=== PATIENT | female | born 1960 | race Hispanic/Latino ===

== ENCOUNTER 2018-08-03 13:23 | Emergency (ER) | payer OTHER ==
[~2018-08-03] VITALS: Ht 152.4 cm; Wt 84.4 kg
--- NOTE | 2018-08-03 16:11 | Diagnostic Imaging Report ---
Radiographs of the left shoulder - 3 views HISTORY: Pain COMPARISON: None available. FINDINGS: Bones: No acute displaced fracture. Osseous alignment is within normal limits. Joints: Scattered degenerative change. No osseous erosion. Soft tissues: The soft tissues appear unremarkable. IMPRESSION: Scattered degenerative change. No osseous erosion. Signed by: Dr. Alex Verde M.D. on 08/03/2018 4:08 PM
[2018-08-03 17:26] VITALS: BP 152/84
== END 2018-08-03 17:31 | disposition home or self-care (01) ==
LOC: ER 13:23
DX: S46.812A Strain of other muscles, fascia and tendons at shoulder and upper arm level, left arm, initial encounter (principal); X50.0XXA Overexertion from strenuous movement or load, initial encounter; Y99.0 Civilian activity done for income or pay; I10 Essential (primary) hypertension; E23.2 Diabetes insipidus; K21.9 Gastro-esophageal reflux disease without esophagitis
CPT/HCPCS: 99283

== ENCOUNTER → 2018-08-29 | Outpatient (CLI) | payer BC ==
--- NOTE | 2018-08-31 11:41 | Diagnostic Imaging Report ---
PROCEDURE:PELVIC ULTRASOUND COMPARISON:None. INDICATIONS:PELVIC PAIN TECHNIQUE: Grayscale transverse and sagittal transabdominal images were obtained of the pelvis. . FINDINGS:Limited exam with transabdominal imaging due to a fundal fibroid that is calcified that measures 5.4 x 4.7 x 5.6 cm. Remainder of the uterus is not visible. Neither ovaries or the endometrial stripe are able to be seen. Additional evaluation with either transvaginal scanning or pelvic MRI would be of benefit. CONCLUSION: Limited transabdominal pelvic ultrasound showing a fundal fibroid. Richard Lauren D.O. Dictated by: Richard Lauren D.O. on 08/31/2018 at 11:50 Electronically approved by: Richard Lauren D.O. on 08/31/2018 at 11:50
--- NOTE | 2018-08-31 11:45 | Diagnostic Imaging Report ---
PROCEDURE:ABDOMINAL ULTRASOUND COMPARISON:None. INDICATIONS:ABD PAIN FINDINGS: Liver: Measures 14.9 cm in the midclavicular line. Increased hepatic parenchymal echogenicity. No focal mass. Main portal vein: Measures 0.8 cm with normal hepatopetal flow. Gallbladder: Absent. Common Bile Duct: Measures 0.3 cm with no echogenic filling defect. Sonographic Alba's sign: Negative Right kidney: Measures 10.4 x 4.3 x 5.1 cm. No solid or cystic mass, echogenic calculi or hydronephrosis. Normal parenchymal echogenicity. Left kidney: Measures 10.2 x 4.6 x 5.1 cm. No solid or cystic mass, echogenic calculi or hydronephrosis. Normal parenchymal echogenicity. Spleen: Measures 7.8 x 3.5 x 3.2 cm. No mass identified. Pancreas: The visualized portions of the pancreas are normal. Inferior vena cava: Normal. Aorta: Normal. Ascites: None. CONCLUSION: Echogenic liver without evidence of a mass. Richard Lauren D.O. Dictated by: Richard Lauren D.O. on 08/31/2018 at 11:54 Electronically approved by: Richard Lauren D.O. on 08/31/2018 at 11:54
== END ==
LOC: US 10:23
PROVIDERS: ATTEND Family Medicine
DX: R10.9 Unspecified abdominal pain (principal); R10.2 Pelvic and perineal pain; D25.9 Leiomyoma of uterus, unspecified
CPT/HCPCS: 76700; 76856

== ENCOUNTER → 2019-09-30 | Outpatient (CLI) | payer BC ==
[~2019-09-30] MED LIST: DIATRIZOATE MEGL/DIATRIZOA SOD 30 ML BTL PO ONE; IOPAMIDOL 370 MG/ML 200 ML INFUS..BTL INJ ONE; SODIUM CHLORIDE 0.9% 50ML 50 ML ONE
[2019-09-30 13:02] LABS: BLOOD UREA NITROGEN 13 mg/dL (7-26); BUN/CREATININE RATIO 18 (6-25); CREATININE, SERUM 0.74 mg/dL (0.57-1.11); EST GLOMERULAR FILTRATION RATE > 60 ML/MIN (60-)
--- NOTE | 2019-09-30 15:41 | Diagnostic Imaging Report ---
EXAM: CT Abdomen and Pelvis WITH intravenous contrast INDICATION: Abdominal pain COMPARISON: None. TECHNIQUE: Abdomen and pelvis were scanned utilizing a multidetector helical scanner from the lung base to the pubic symphysis after administration of IV contrast. Coronal and sagittal reformations were obtained. Routine protocol was performed. Scan was performed during portal venous phase. IV CONTRAST: 100mL of Isovue 370 ORAL CONTRAST: Water RADIATION DOSE: Total DLP: 680.7 mGy*cm Dose modulation, iterative reconstruction, and/or weight based adjustment of the mA/kV was utilized to reduce the radiation dose to as low as reasonably achievable. FINDINGS: LOWER THORAX: No lung base consolidation. Moderate hiatal hernia. HEPATOBILIARY: Diffuse hepatic steatosis. No focal liver lesion. No biliary ductal dilation. Status post cholecystectomy. SPLEEN: No splenomegaly. PANCREAS: No focal masses or ductal dilatation. ADRENALS: No adrenal nodules. KIDNEYS/URETERS: No hydronephrosis, stones, or solid mass lesions. PELVIC ORGANS/BLADDER: Peripherally calcified mass involving the uterus measures up to 5.0 x 5.4 x 5.8 cm, likely a uterine fibroid. PERITONEUM / RETROPERITONEUM: No free air or fluid. LYMPH NODES: No lymphadenopathy. VESSELS: Mild scattered atherosclerotic calcifications of the nonaneurysmal abdominal aorta and major branches. GI TRACT: Diverticulosis without CT evidence of diverticulitis. No abnormal bowel wall thickening. No bowel obstruction. BONES AND SOFT TISSUES: No acute osseous injury. No suspicious lytic or blastic lesions. IMPRESSION: No acute findings in the abdomen or pelvis. Diffuse hepatic steatosis. Diverticulosis without CT evidence of diverticulitis. Calcified uterine fibroid. Signed by: Chary Goyal MD on 09/30/2019 3:37 PM
== END ==
LOC: CT 12:23
PROVIDERS: ATTEND Family Medicine
DX: R10.84 Generalized abdominal pain (principal); M54.15 Radiculopathy, thoracolumbar region
CPT/HCPCS: 36415; 74177; 82565; 84520; Q9967

== ENCOUNTER → 2019-10-04 | Outpatient (CLI) | payer BC ==
--- NOTE | 2019-10-04 12:28 | Diagnostic Imaging Report ---
Examination: MRI SPINE THORACIC WO CONTRAST History: Mid back pain. Comparison studies: None Technique: Sagittal T1 and STIR; axial, sagittal and coronal T2 Intravenous contrast: None. Findings: Alignment: Normal kyphosis. No scoliosis. Thoracic cord: Normal in signal and morphology. The tip of the conus is at T12-L1. Soft tissues: No T2 hyperintense inflammatory changes. Paraspinal muscles: Preserved. No volume loss. Vertebrae: No compression fractures, infection or neoplasm. Degenerative changes: Disc spaces:Normal in height and signal intensity.. Facets: Intact. Spinal canal:Patent. No stenosis. Foramina:Patent. Disc bulge or herniations:No abnormality. A 6 mm T2 hyperintense lesion is demonstrated in the right neural foramen at T10-T11, representing a nerve root sleeve cyst. Similar but smaller lesions are seen in the left neural foramen at T4-5, T5-T6, T6-T7 and T8-T9. IMPRESSION: 1. No acute abnormality. 2. No disc herniation or canal stenosis. 3. Incidental subcentimeter nerve root sleeve cysts, as detailed above. Signed by: Dr. Sofi Rendon M.D. on 10/04/2019 12:25 PM
== END ==
LOC: MRI 10:07
PROVIDERS: ATTEND Family Medicine
DX: M54.15 Radiculopathy, thoracolumbar region (principal)
CPT/HCPCS: 72146

== ENCOUNTER 2020-04-10 01:11 | Emergency (ER) | payer BC ==
[~2020-04-10] VITALS: Ht 152.4 cm; Wt 84.4 kg
--- NOTE | 2020-04-10 01:39 | Emergency Department Note ---
History of Present Illnes History of Present Illness Chief Complaint: COVID PUI History of Present Illness This is a 59 year old female with positive exposure to COVID-19 patients. Patient had testing done at [facility] but has yet to receive results. Patient with increased cough. Historian: Patient Arrival Mode: [place] Onset (how long ago): day(s) Severity: moderate Onset quality: gradual Duration (how long): day(s) (3) Timing of current episode: constant Progression: worsening Context: Reports recent illness Relieving factors: none Exacerbating factors: none Associated symptoms: Reports cough, Reports fever/chills, Reports malaise Treatments prior to arrival: none Past Medical/Family History Physician Review I have reviewed the patient's past medical and family history. Any updates have been documented here. Past Medical History Recent Fever: Yes Clinical Suspicion of Infectio: No New/Unexplained Change in Ment: No Past Medical History: Hypertension, Diabetes, GERD Past Surgical History: Cholecysctectomy Other Surgery: Bladder suspension cyst removal from back Fibroid embolization Social History Smoking Cessation: Never Smoker Alcohol Use: None Any Illegal Drug Use: No Other Last Tetanus: UTD Review of Systems Review of Systems Constitutional: Reports fever EENTM: Reports no symptoms Cardiovascular: Reports no symptoms Respiratory: Reports no symptoms Gastrointestinal: Reports nausea Genitourinary: Reports no symptoms Musculoskeletal: Reports no symptoms Integumentary: Reports no symptoms Neurological: Reports no symptoms Psychological: Reports no symptoms Endocrine: Reports no symptoms Hematological/Lymphatic: Reports no symptoms Physical Exam Related Data Allergies: Coded Allergies: morphine (Verified Allergy, Severe, SOB, 08/03/18) promethazine (Verified Allergy, Severe, SOB, 08/03/18) Triage Vital Signs Vital Signs Date Time Temp Pulse Resp B/P (MAP) Pulse Ox O2 Delivery O2 Flow Rate FiO2 04/10/20 01:19 Room Air Vital signs reviewed: Yes Physical Exam CONSTITUTIONAL Constitutional: Present ill appearing HENT HENT: Present normocephalic, Present atraumatic, Present oropharynx clear/moist, Present nose normal HENT L/R: Present left ext ear normal, Present right ext ear normal EYES Eyes: Reports PERRL, Reports conjunctivae normal NECK Neck: Present ROM normal PULMONARY Pulmonary: Present effort normal, Present breath sounds normal CARDIOVASCULAR Cardiovascular: Present regular rhythm, Present heart sounds normal, Present capillary refill normal, Present normal rate GASTROINTESTINAL Abdominal: Present soft, Present nontender, Present bowel sounds normal GENITOURINARY Genitourinary: Present exam deferred SKIN Skin: Present warm, Present dry MUSCULOSKELETAL Musculoskeletal: Present ROM normal NEUROLOGICAL Neurological: Present alert, Present oriented x 3, Present no gross motor or sensory deficits PSYCHOLOGICAL Psychological: Present mood/affect normal, Present judgement normal Assessment & Plan Medical Decision Making MDM 59 yof with fever and myalgias. (+) contact . COVID-19 highly suspected but testing deferred secondary to stable vital signs and high oxygen saturation on RA. Patient to be given Rx Azithromycin and albuterol. Assessment & Plan Final Impression: (1) COVID-19 Depart Disposition: HOME, SELF-CARE Last Vital Signs Date Time Temp Pulse Resp B/P (MAP) Pulse Ox O2 Delivery O2 Flow Rate FiO2 04/10/20 01:19 Room Air Home Meds Active Scripts Albuterol Sulfate (ALBUTEROL SULFATE) 2.5 Mg/3 Ml Vial.neb, 6 ML PO Q4HR PRN for COUGH, #60 UNIT 2 Refills PRN COUGH, WHEEZING, SHORTNESS OF BREATH Prov:NAREN GERMAN 04/13/20 Albuterol Sulf* (PROAIR HFA INHALER*) 8.5 Gm Inh, 2 INH PO Q4HR PRN for COUGH, #1 UNIT 2 Refills PRN COUGH, WHEEZING, SHORTNESS OF BREATH Prov:NAREN GERMAN 04/13/20 Prednisone (PREDNISONE) 20 Mg Tab, 60 MG PO DAILY, #21 TAB TAKE ALL 3 PILLS AT ONCE Prov:NAREN GERMAN 04/13/20 TAMY MYERS DO Apr 10, 2020 01:39
[2020-04-10] MEDS ORDERED: KETOROLAC TROMETHAMINE 60 MG/2 ML VIAL IM ONE (01:45)
[2020-04-10] MEDS ORDERED: AZITHROMYCIN 250 MG TAB PO ONE (01:45)
[2020-04-10] MEDS ORDERED: AZITHROMYCIN 250 MG TAB ONE (02:20)
== END 2020-04-10 02:50 | disposition home or self-care (01) ==
LOC: ER 01:25
DX: U07.1 COVID-19 (principal); R50.9 Fever, unspecified; R05 Cough; R53.81 Other malaise; I10 Essential (primary) hypertension; E11.9 Type 2 diabetes mellitus without complications; K21.9 Gastro-esophageal reflux disease without esophagitis
CPT/HCPCS: 99283; J1885

== ENCOUNTER 2020-04-13 15:55 | Emergency (ER) | payer BC, OTHER ==
[~2020-04-13] VITALS: Ht 152.4 cm; Wt 84.8 kg
[2020-04-13] MEDS ORDERED: PREDNISONE20 MG PO ×2 (16:40→16:44)
[2020-04-13] MEDS ORDERED: PROAIR HFA INH8.5 GM PO ×2 (16:40→16:44)
[2020-04-13] MEDS ORDERED: ALBUTEROL2.5 MG/3 M PO ×2 (16:40→16:44)
--- NOTE | 2020-04-13 17:40 | Emergency Department Note ---
History of Present Illnes History of Present Illness Chief Complaint: COVID PUI/ cough, fever, reyes, ba History of Present Illness This is a 59 year old female. was doing well prior to this. then cough, fever, reyes, bodyaches Historian: Patient Arrival Mode: Car History limited by: condition of the patient (normal) Onset (how long ago): week(s) (1) Location: n/a Quality: n/a Radiation: Reports non-radiation Severity: moderate Onset quality: gradual Timing of current episode: intermittent Progression: unchanged Chronicity: new Context: Denies recent illness, Denies recent surgery, Denies recent immobilization, Denies recent travel, Denies trauma/injury, Denies new medications, Denies hx of DVT/PE, Denies non-compliance w/ medications Relieving factors: none Exacerbating factors: none Associated symptoms: Reports cough, Reports fever/chills, Reports headaches, Reports other (bodyaches) Treatments prior to arrival: none Past Medical/Family History Physician Review I have reviewed the patient's past medical and family history. Any updates have been documented here. Past Medical History Recent Fever: No Clinical Suspicion of Infectio: No New/Unexplained Change in Ment: No Past Medical History: Hypertension, Diabetes, GERD Past Surgical History: Cholecysctectomy Other Surgery: Bladder suspension cyst removal from back Fibroid embolization Social History Smoking Cessation: Former smoker Counseling Performed: No Alcohol Use: None Any Illegal Drug Use: No Other Last Tetanus: UTD Any Pre-Existing Lines (PICC,: No Review of Systems Review of Systems Constitutional: Reports as per HPI EENTM: Reports no symptoms Cardiovascular: Reports no symptoms Respiratory: Reports as per HPI Gastrointestinal: Reports no symptoms Genitourinary: Reports no symptoms Musculoskeletal: Reports no symptoms Integumentary: Reports no symptoms Neurological: Reports as per HPI, Reports headache Psychological: Reports no symptoms Endocrine: Reports no symptoms Hematological/Lymphatic: Reports no symptoms Review of other systems: All other systems negative Physical Exam Related Data Allergies: Coded Allergies: morphine (Verified Allergy, Severe, SOB, 08/03/18) promethazine (Verified Allergy, Severe, SOB, 08/03/18) Triage Vital Signs Vital Signs Date Time Temp Pulse Resp B/P (MAP) Pulse Ox O2 Delivery O2 Flow Rate FiO2 04/13/20 16:11 99.4 94 18 136/62 97 Vital signs reviewed: Yes Physical Exam CONSTITUTIONAL Constitutional: Present well-developed, Present well-nourished HENT HENT: Present normocephalic, Present atraumatic, Present oropharynx clear/moist, Present nose normal HENT L/R: Present left ext ear normal, Present right ext ear normal EYES Eyes: Reports PERRL, Reports conjunctivae normal NECK Neck: Present ROM normal, Present supple PULMONARY Pulmonary: Present effort normal, Present other (forced expiratory wheezes) CARDIOVASCULAR Cardiovascular: Present regular rhythm, Present heart sounds normal, Present capillary refill normal, Present normal rate GASTROINTESTINAL Abdominal: Present soft, Present nontender, Present bowel sounds normal GENITOURINARY Genitourinary: Present exam deferred SKIN Skin: Present warm, Present dry MUSCULOSKELETAL Musculoskeletal: Present ROM normal NEUROLOGICAL Neurological: Present alert, Present oriented x 3, Present no gross motor or sensory deficits PSYCHOLOGICAL Psychological: Present mood/affect normal, Present judgement normal Assessment & Plan Medical Decision Making MDM take rxed meds Assessment & Plan Final Impression: (1) COVID-19 (2) Bronchitis Depart Disposition: HOME, SELF-CARE Last Vital Signs Date Time Temp Pulse Resp B/P (MAP) Pulse Ox O2 Delivery O2 Flow Rate FiO2 04/13/20 16:11 99.4 94 18 136/62 97 Home Meds Active Scripts Albuterol Sulfate (ALBUTEROL SULFATE) 2.5 Mg/3 Ml Vial.neb, 6 ML PO Q4HR PRN for COUGH, #60 UNIT 2 Refills PRN COUGH, WHEEZING, SHORTNESS OF BREATH Prov:NAREN GERMAN 04/13/20 Albuterol Sulf* (PROAIR HFA INHALER*) 8.5 Gm Inh, 2 INH PO Q4HR PRN for COUGH, #1 UNIT 2 Refills PRN COUGH, WHEEZING, SHORTNESS OF BREATH Prov:NAREN GERMAN 04/13/20 Prednisone (PREDNISONE) 20 Mg Tab, 60 MG PO DAILY, #21 TAB TAKE ALL 3 PILLS AT ONCE Prov:NAREN GERMAN 04/13/20 NAREN GERMAN Apr 13, 2020 17:40
--- NOTE | 2020-04-14 19:58 | NUR ---
PT GIVEN COVID [address] KIM, PTS QUESTIONS ANSWERED BY DR KIM
== END 2020-04-13 16:58 | disposition home or self-care (01) ==
LOC: FSED 16:37
DX: U07.1 COVID-19 (principal); J40 Bronchitis, not specified as acute or chronic; R50.9 Fever, unspecified; R05 Cough; R51 Headache; I10 Essential (primary) hypertension; E11.9 Type 2 diabetes mellitus without complications; K21.9 Gastro-esophageal reflux disease without esophagitis
CPT/HCPCS: 87635; 99283

== ENCOUNTER → 2020-08-16 | Outpatient (CLI) | payer BC ==
[~2020-08-16] MED LIST changes: +ALBUTEROL2.5 MG/3 M PO; -DIATRIZOATE MEGL/DIATRIZOA SOD 30 ML BTL PO ONE; -IOPAMIDOL 370 MG/ML 200 ML INFUS..BTL INJ ONE; +PREDNISONE20 MG PO; +PROAIR HFA INH8.5 GM PO; -SODIUM CHLORIDE 0.9% 50ML 50 ML ONE
[2020-08-16 08:41] LABS: BASOPHILS % 0.8 % (0.0-1.0); EOSINOPHILS # (AUTO) 0.1 (0.0-0.4); EOSINOPHILS % 2.7 % (0.0-6.0); HEMATOCRIT 36.2 % (34.2-44.1); HEMOGLOBIN 11.9 g/dL (12.0-16.0); LYMPHOCYTES # (AUTO) 1.8 (1.0-3.2); LYMPHOCYTES % 34.8 % (18.0-39.1); MEAN CORPUSCULAR HEMOGLOBIN 30.8 pg (28-32); MEAN CORPUSCULAR HGB CONC 32.9 g/dL (31-35); MEAN CORPUSCULAR VOLUME 93.8 fL (81-99); MONOCYTES # (AUTO) 0.4 (0.2-0.8); MONOCYTES % 6.8 % (4.4-11.3); NEUTROPHILS # (AUTO) 2.8 (2.1-6.9); NEUTROPHILS % 54.7 % (38.7-80.0); PLATELET COUNT 208 x10e3/uL (140-360); RED BLOOD COUNT 3.86 x10e6/uL (3.6-5.1); RED CELL DISTRIBUTION WIDTH 12.3 % (11.7-14.4)
[2020-08-16 09:02] LABS: ALANINE AMINOTRANSFERASE 29 IU/L (0-55); ALBUMIN/GLOBULIN RATIO 1.3 (0.8-2.0); ALKALINE PHOSPHATASE 87 IU/L (40-150); BLOOD UREA NITROGEN 15 mg/dL (7-26); BUN/CREATININE RATIO 21 (6-25); CALCIUM 9.3 mg/dL (8.4-10.2); CARBON DIOXIDE 25 mmol/L (22-29); CHLORIDE 108 mmol/L (98-107); CHOL/HDL RATIO 2.8 (3.0-3.6); CHOLESTEROL 156 MD/DL (0-199); CREATININE, SERUM 0.72 mg/dL (0.57-1.11); EST GLOMERULAR FILTRATION RATE > 60 ML/MIN (60-); GLUCOSE 113 mg/dL (74-118); HDL CHOLESTEROL 56 MG/DL (40-60); IRON 68 ug/dL (50-170); LDL CHOLESTEROL 78 MG/DL (60-130); SODIUM 141 mmol/L (136-145); TRIGLYCERIDES 111 MG/DL (0-149)
== END ==
LOC: LAB 08:17
PROVIDERS: ATTEND Family Medicine
DX: E11.9 Type 2 diabetes mellitus without complications (principal); E78.2 Mixed hyperlipidemia; E04.9 Nontoxic goiter, unspecified
CPT/HCPCS: 36415; 80053; 80061; 83036; 83540; 84436; 84443; 84480; 85025

== ENCOUNTER 2021-10-28 23:19 | Emergency (ER) | payer BC ==
[~2021-10-28] VITALS: Ht 152.4 cm; Wt 84.8 kg
[2021-10-28 23:45] LABS: BASOPHILS # (AUTO) 0.1 (0.0-0.1); BASOPHILS % 0.8 % (0.0-1.0); EOSINOPHILS # (AUTO) 0.2 (0.0-0.4); EOSINOPHILS % 2.7 % (0.0-6.0); HEMATOCRIT 24.8 % (34.2-44.1); LYMPHOCYTES % 35.2 % (18.0-39.1); MEAN CORPUSCULAR HEMOGLOBIN 19.1 pg (28-32); MEAN CORPUSCULAR VOLUME 70.9 fL (81-99); MONOCYTES # (AUTO) 0.5 (0.2-0.8); MONOCYTES % 6.5 % (4.4-11.3); NEUTROPHILS # (AUTO) 4.6 (2.1-6.9); NEUTROPHILS % 54.7 % (38.7-80.0); PLATELET COUNT 348 x10e3/uL (140-360); RED CELL DISTRIBUTION WIDTH 17.2 % (11.7-14.4)
[2021-10-28 23:50] LABS: HEMOGLOBIN 6.7 g/dL (12.0-16.0)
== END 2021-10-29 00:07 | disposition home or self-care (01) ==
LOC: ER 23:34
DX: D50.9 Iron deficiency anemia, unspecified (principal); I10 Essential (primary) hypertension; E11.9 Type 2 diabetes mellitus without complications; E78.5 Hyperlipidemia, unspecified; K21.9 Gastro-esophageal reflux disease without esophagitis; Z86.16 Personal history of COVID-19
CPT/HCPCS: 36415; 85025; 99283

== ENCOUNTER 2021-11-01 15:33 | Observation (INO) | payer BC ==
[~2021-11-01] VITALS: Ht 152.4 cm; Wt 86.7 kg
[2021-11-01 16:27] LABS: BASOPHILS # (AUTO) 0.1 (0.0-0.1); BASOPHILS % 0.7 % (0.0-1.0); EOSINOPHILS # (AUTO) 0.2 (0.0-0.4); EOSINOPHILS % 2.2 % (0.0-6.0); HEMATOCRIT 25.1 % (34.2-44.1); LYMPHOCYTES # (AUTO) 2.1 (1.0-3.2); LYMPHOCYTES % 24.5 % (18.0-39.1); MEAN CORPUSCULAR HEMOGLOBIN 19.3 pg (28-32); MEAN CORPUSCULAR HGB CONC 27.1 g/dL (31-35); MEAN CORPUSCULAR VOLUME 71.3 fL (81-99); MONOCYTES # (AUTO) 0.6 (0.2-0.8); MONOCYTES % 6.8 % (4.4-11.3); NEUTROPHILS # (AUTO) 5.7 (2.1-6.9); NEUTROPHILS % 65.2 % (38.7-80.0); PLATELET COUNT 354 x10e3/uL (140-360); RED BLOOD COUNT 3.52 x10e6/uL (3.6-5.1); RED CELL DISTRIBUTION WIDTH 18.7 % (11.7-14.4)
[2021-11-01 16:35] LABS: HEMOGLOBIN 6.8 g/dL (12.0-16.0)
[2021-11-01 16:38] LABS: INR 0.93; PARTIAL THROMBOPLASTIN TIME 31.4 seconds (23.8-35.5); PROTHROMBIN TIME 13.1 seconds (11.9-14.5)
[2021-11-01 16:45] LABS: % IRON SATURATION 2 % (15-50); IRON 12 ug/dL (50-170); TOTAL IRON BINDING CAPACITY 573 ug/dL (261-478); TRANSFERRIN 409 mg/dL (180-382)
[2021-11-01 16:50] LABS: ALBUMIN 3.7 g/dL (3.5-5.0); ANION GAP 14.8 mmol/L (8-16); CALCIUM 9.1 mg/dL (8.4-10.2); CREATININE, SERUM 0.81 mg/dL (0.57-1.11); POTASSIUM 3.8 mmol/L (3.5-5.1)
[2021-11-01] MEDS ORDERED: ACETAMINOPHEN 325 MG TAB PO PRN ×2 (17:30→20:30)
[2021-11-01] MEDS ORDERED: ONDANSETRON HCL INJ 2MG/ML 2ML 2 MG/ML VIAL IV PRN (17:30)
[2021-11-01] MEDS ORDERED: ALBUTEROL/IPRATROPIUM 3 ML NEB NEB PRN (18:15)
[2021-11-01] MEDS: IRON SUCROSE 100 MG in SODIUM CHLORIDE 0.9% 100 ML 100 ML IV SCH (18:45)
[2021-11-01 20:00] VITALS: BP 151/81
[2021-11-01] MEDS ORDERED: ATORVASTATIN CA20 MG PO (20:11)
[2021-11-01] MEDS ORDERED: HYDROCHLOROTHIA25 MG PO (20:11)
[2021-11-01] MEDS ORDERED: IRON325 M1 PO (20:11)
[2021-11-01] MEDS ORDERED: PANTOPRAZOLE SO40 MG PO (20:11)
[2021-11-01] MEDS ORDERED: LOSARTAN POTAS100 MG PO (20:11)
[2021-11-01] MEDS ORDERED: TRADJENTA5 MG PO (20:11)
[2021-11-01] MEDS ORDERED: METFORMIN HCL500 M2 PO (20:11)
[2021-11-01] MEDS ORDERED: VITAMIN D350 MCG PO (20:11)
[2021-11-01 20:30] VITALS: BP 151/81
[2021-11-01] MEDS ORDERED: PANTOPRAZOLE SOD 40 MG TABEC PO PRN (20:30)
[2021-11-01] MEDS ORDERED: ATORVASTATIN 20 MG TAB PO SCH (21:00)
[2021-11-01] MEDS ORDERED: DIPHENHYDRAMINE HCL INJ 50 MG/ML VIAL IV ONE (21:45)
[2021-11-01] MEDS ORDERED: SODIUM CHLORIDE 0.9% 250ML 250 ML ONE (22:16)
[2021-11-01 23:21] VITALS: BP 122/68
[2021-11-02 00:18] VITALS: BP 119/62
[2021-11-02] MEDS ORDERED: SODIUM CHLORIDE 0.9% 250ML 250 ML ONE (01:44)
[2021-11-02 04:00] VITALS: BP 110/55
[2021-11-02 04:45] VITALS: BP 115/70
[2021-11-02] MEDS ORDERED: ERGOCALCIF200 MCG/1 PO (06:31)
[2021-11-02 07:28] VITALS: BP 120/56
[2021-11-02] MEDS: INSULIN LISPRO 100 UNIT/1 ML 3ML VIAL SQ SCH ×2 (07:30→11:30)
[2021-11-02 07:49] VITALS: BP 120/56
[2021-11-02 08:00] LABS: BASOPHILS # (AUTO) 0.1 (0.0-0.1); BASOPHILS % 0.7 % (0.0-1.0); EOSINOPHILS # (AUTO) 0.2 (0.0-0.4); EOSINOPHILS % 3.2 % (0.0-6.0); HEMATOCRIT 31.4 % (34.2-44.1); HEMOGLOBIN 9.1 g/dL (12.0-16.0); LYMPHOCYTES # (AUTO) 2.1 (1.0-3.2); LYMPHOCYTES % 27.6 % (18.0-39.1); MEAN CORPUSCULAR HEMOGLOBIN 22.4 pg (28-32); MEAN CORPUSCULAR VOLUME 77.1 fL (81-99); MONOCYTES # (AUTO) 0.6 (0.2-0.8); MONOCYTES % 7.3 % (4.4-11.3); NEUTROPHILS # (AUTO) 4.6 (2.1-6.9); NEUTROPHILS % 60.9 % (38.7-80.0); PLATELET COUNT 270 x10e3/uL (140-360); RED BLOOD COUNT 4.07 x10e6/uL (3.6-5.1); RED CELL DISTRIBUTION WIDTH 24.6 % (11.7-14.4)
[2021-11-02] MEDS ORDERED: METFORMIN HCL 500 MG TAB CR PO SCH (08:00)
[2021-11-02] MEDS ORDERED: LOSARTAN POTASSIUM 100 MG TAB PO SCH (09:00)
[2021-11-02] MEDS ORDERED: NON-FORMULARY MEDICATION (Linagliptin (Tradjenta) 5 MG) PO SCH (09:00)
[2021-11-02] MEDS ORDERED: HYDROCHLOROTHIAZIDE 25 MG TAB PO SCH (09:00)
[2021-11-02 12:00] VITALS: BP 137/81
[2021-11-02] MEDS: IRON SUCROSE 100 MG in SODIUM CHLORIDE 0.9% 100 ML 100 ML IV SCH (12:40)
[2021-11-05] MEDS ORDERED: VITAMIN D 50000 UNIT PO SCH (09:00)
[2021-11-05] MEDS ORDERED: ERGOCALCIFEROL 50,000 UNIT CAP PO SCH (09:00)
== END 2021-11-02 14:16 | disposition home or self-care (01) ==
LOC: ER 16:04 → ERHOLD 17:42 → MED/SURG 20:01
PROVIDERS: ADMIT Internal Medicine; ATTEND Internal Medicine
DX: D50.9 Iron deficiency anemia, unspecified (principal); E11.9 Type 2 diabetes mellitus without complications; I10 Essential (primary) hypertension; Z88.5 Allergy status to narcotic agent; Z88.8 Allergy status to other drugs, medicaments and biological substances; Z20.822 Contact with and (suspected) exposure to COVID-19; E66.9 Obesity, unspecified; Z68.37 Body mass index [BMI] 37.0-37.9, adult; Z79.84 Long term (current) use of oral hypoglycemic drugs
CPT/HCPCS: 36415 ×2; 36430; 80053; 82728; 82948 ×2; 83540; 84466; 84484; 85025 ×2; 85610; 85730; 86850; 86900; 86920; 94799 ×2; 99284; G0378 ×2; J1200; J1756 ×2; J7050 ×2; P9016 ×2; U0002

== ENCOUNTER → 2023-08-04 | Outpatient (REF) | payer BC ==
[~2023-08-04] MED LIST changes: +ATORVASTATIN CA20 MG PO; +ERGOCALCIF200 MCG/1 PO; +HYDROCHLOROTHIA25 MG PO; +IRON325 M1 PO; +LOSARTAN POTAS100 MG PO; +METFORMIN HCL500 M2 PO; +PANTOPRAZOLE SO40 MG PO; +TRADJENTA5 MG PO; +VITAMIN D350 MCG PO
[2023-08-04 09:43] LABS: ANION GAP 13.9 mmol/L (8-16); CALCIUM 9.8 mg/dL (8.4-10.2); CREATININE, SERUM 0.81 mg/dL (0.57-1.11); POTASSIUM 3.9 mmol/L (3.5-5.1)
== END ==
LOC: LAB 09:14
PROVIDERS: ATTEND Anesthesiology
DX: Z01.811 Encounter for preprocedural respiratory examination (principal); E11.9 Type 2 diabetes mellitus without complications
CPT/HCPCS: 36415; 71046; 80048

== ENCOUNTER → 2023-08-15 | Outpatient (REF) | payer BC ==
[2023-08-15 10:03] LABS: BASOPHILS % 0.9 % (0.0-1.0); EOSINOPHILS # (AUTO) 0.1 (0.0-0.4); EOSINOPHILS % 2.6 % (0.0-6.0); HEMATOCRIT 36.6 % (34.2-44.1); HEMOGLOBIN 12.3 g/dL (12.0-16.0); LYMPHOCYTES # (AUTO) 1.6 (1.0-3.2); LYMPHOCYTES % 34.8 % (18.0-39.1); MEAN CORPUSCULAR HEMOGLOBIN 29.4 pg (28-32); MEAN CORPUSCULAR HGB CONC 33.6 g/dL (31-35); MEAN CORPUSCULAR VOLUME 87.4 fL (81-99); MONOCYTES # (AUTO) 0.3 (0.2-0.8); MONOCYTES % 6.8 % (4.4-11.3); NEUTROPHILS # (AUTO) 2.5 (2.1-6.9); NEUTROPHILS % 54.7 % (38.7-80.0); PLATELET COUNT 228 x10e3/uL (140-360); RED BLOOD COUNT 4.19 x10e6/uL (3.6-5.1); RED CELL DISTRIBUTION WIDTH 20.1 % (11.7-14.4); WHITE BLOOD COUNT 4.54 x10e3/uL (4.8-10.8)
[2023-08-15 10:21] LABS: CHOL/HDL RATIO 2.1 (3.0-3.6)
== END ==
LOC: LAB 09:39
PROVIDERS: ATTEND Nurse Practitioner Family
DX: E11.9 Type 2 diabetes mellitus without complications (principal); D50.9 Iron deficiency anemia, unspecified; E78.2 Mixed hyperlipidemia
CPT/HCPCS: 36415; 80061; 83036; 85025

== ENCOUNTER 2024-07-31 22:18 | Emergency (ER) | payer BC ==
[~2024-07-31] VITALS: Ht 152.4 cm; Wt 71.7 kg
[2024-07-31 22:25] VITALS: TEMP 98.6
[2024-07-31] MEDS: ONDANSETRON HCL INJ 2MG/ML 2ML 2 MG/ML VIAL IV STA (22:43)
[2024-07-31] MEDS: SODIUM CHLORIDE 0.9% 1000ML 1,000 ML IV STA (22:43)
[2024-07-31 22:45] LABS: BASOPHILS % 0.3 % (0.0-1.0); EOSINOPHILS % 0.2 % (0.0-6.0); HEMATOCRIT 43.3 % (34.2-44.1); HEMOGLOBIN 14.2 g/dL (12.0-16.0); LYMPHOCYTES % 8.6 % (18.0-39.1); MEAN CORPUSCULAR HEMOGLOBIN 31.5 pg (28-32); MEAN CORPUSCULAR HGB CONC 32.8 g/dL (31-35); MONOCYTES # (AUTO) 0.4 (0.2-0.8); MONOCYTES % 3.2 % (4.4-11.3); NEUTROPHILS # (AUTO) 10.1 (2.1-6.9); NEUTROPHILS % 87.4 % (38.7-80.0); PLATELET COUNT 259 x10e3/uL (140-360); RED BLOOD COUNT 4.51 x10e6/uL (3.6-5.1); RED CELL DISTRIBUTION WIDTH 11.9 % (11.7-14.4); WHITE BLOOD COUNT 11.52 x10e3/uL (4.8-10.8)
[2024-07-31 23:02] LABS: ALANINE AMINOTRANSFERASE 41 IU/L (0-55); ALBUMIN 4.7 g/dL (3.5-5.0); ALBUMIN/GLOBULIN RATIO 1.3 (0.8-2.0); ALKALINE PHOSPHATASE 104 IU/L (40-150); ANION GAP 16.5 mmol/L (8-16); BLOOD UREA NITROGEN 24 mg/dL (7-26); BUN/CREATININE RATIO 26 (6-25); CALCIUM 10.3 mg/dL (8.4-10.2); CARBON DIOXIDE 19 mmol/L (22-29); CHLORIDE 104 mmol/L (98-107); CREATINE KINASE 146 IU/L (29-168); CREATININE, SERUM 0.94 mg/dL (0.57-1.11); EST GLOMERULAR FILTRATION RATE 68 ML/MIN (>=60); GLUCOSE 137 mg/dL (74-118); POTASSIUM 3.5 mmol/L (3.5-5.1); SODIUM 136 mmol/L (136-145); TOTAL PROTEIN 8.3 g/dL (6.5-8.1)
[2024-07-31 23:09] LABS: TROPONIN I < 0.05 ng/mL (0.0-0.40)
[2024-07-31 23:20] LABS: LIPASE 29 U/L (8-78)
[2024-07-31] MEDS ORDERED: IOPAMIDOL 370 MG/ML 100 ML INFUS..BTL INJ ONE (23:39)
[2024-07-31 23:58] LABS: CLARITY,URINE CLEAR (CLEAR); COLOR,URINE YELLOW (YELLOW); LEUKOCYTE ESTERASE ,URINE SMALL (NEGATIVE); PH,URINE 5.5 (5 - 7)
[2024-07-31 23:59] LABS: BILIRUBIN,URINE NEGATIVE (NEGATIVE); GLUCOSE, URINE NEGATIVE (NEGATIVE); KETONES,URINE TRACE (NEGATIVE); NITRITE,URINE NEGATIVE (NEGATIVE); PROTEIN,URINE DIPSTICK TRACE (NEGATIVE); URINE UROBILINOGEN 0.2 mg/dL (0.2 - 1)
[2024-08-01 00:02] LABS: INFLUENZAE A&B ANTIGEN (RAPID) NEGATIVE (NEGATIVE); RESPIRATORY SYNC. VIRUS NEGATIVE (NEGATIVE)
[2024-08-01 00:24] VITALS: PULSE 92; RESP 16
[2024-08-01] MEDS: ONDANSETRON HCL INJ 2MG/ML 2ML 2 MG/ML VIAL IV STA (00:29)
[2024-08-01] MEDS: SODIUM CHLORIDE 0.9% 1000ML 1,000 ML IV STA (00:29)
[2024-08-01 00:32] LABS: BACTERIA,URINE MANY /HPF; EPITHELIAL CELLS,URINE MODERATE /LPF; RBC,URINE 0-5 /HPF (0-5)
[2024-08-01 01:04] VITALS: BP 121/71; PULSE 86; RESP 16; TEMP 97.7; O2SAT 100
== END 2024-08-01 01:15 | disposition home or self-care (01) ==
LOC: ER 22:20
DX: R11.2 Nausea with vomiting, unspecified (principal); R10.13 Epigastric pain; R19.7 Diarrhea, unspecified; E86.0 Dehydration; E83.52 Hypercalcemia; I10 Essential (primary) hypertension; E11.65 Type 2 diabetes mellitus with hyperglycemia; E78.5 Hyperlipidemia, unspecified; D50.9 Iron deficiency anemia, unspecified; K21.9 Gastro-esophageal reflux disease without esophagitis; E66.9 Obesity, unspecified; Z11.52 Encounter for screening for COVID-19; R94.31 Abnormal electrocardiogram [ECG] [EKG]
CPT/HCPCS: 0223U; 36415; 74177; 80053; 81001; 82550; 83690; 84484; 85025; 87400; 87420; 93005; 99284; J2405; J7030; Q9967; U0002